=== PATIENT | female | born 1995 | race Caucasian/White ===

== ENCOUNTER 2017-11-28 17:52 | Emergency (ER) | payer OTHER ==
[2017-11-28 18:25] VITALS: BP 124/84
--- NOTE | 2017-11-28 18:50 | ED ---
GI/ HPI - HPI Summary HPI Summary: 22 female presents with dysuria since this morning. She states she has history of UTIs. Last uti was October and she was on Macrobid. She denies any nausea vomiting. She denies any flank pain. No fevers. No abdominal pain. She states that she normally gets a uti after she has sex but she has not had sex recently. She has been seeing rn gyn and she has an appointment with urology in the coming month. She states she used to get frequent uti when she was younger due to reflux but they believed she had grown out of it. - History of Current Complaint Chief Complaint: [facility] Time Seen by Provider: 11/28/17 18:29 Stated Complaint: BURNING URINATION Hx Last Menstrual Period: 11/24/17 Pain Intensity: 6 - Allergy/Home Medications Allergies/Adverse Reactions: Allergies Allergy/AdvReac Type Severity Reaction Status Date / Time No Known Allergies Allergy Verified 11/28/17 18:25 Home Medications: Home Medications Bupropion XL* [Wellbutrin XL *] 300 mg PO DAILY 11/28/17 [History Confirmed ] PMH/Surg Hx/FS Hx/Imm Hx Endocrine/Hematology History: Denies: Hx Diabetes, Hx Thyroid Disease Cardiovascular History: Denies: Hx Hypertension Respiratory History: Denies: Hx Asthma, Hx Chronic Obstructive Pulmonary Disease (COPD) GI History: Denies: Hx Ulcer History: Reports: Other Problems/Disorders - reflux Infectious Disease History: No Infectious Disease History: Denies: Hx Hepatitis, Hx Human Immunodeficiency Virus (HIV), Traveled Outside the [place] in Last 30 Days - Family History Known Family History: Negative: Renal Disease - Social History Alcohol Use: None Substance Use Type: Reports: None Smoking Status (MU): Never Smoked Tobacco Review of Systems Negative: Fever Negative: Chest Pain Negative: Shortness Of Breath Negative: Abdominal Pain, Vomiting, Nausea Positive: dysuria All Other Systems Reviewed And Are Negative: Yes Physical Exam Triage Information Reviewed: Yes Vital Signs On Initial Exam: Initial Vitals Temp Pulse Resp BP Pulse Ox 96.5 F 112 20 124/84 96 11/28/17 18:21 11/28/17 18:21 11/28/17 18:21 11/28/17 18:21 11/28/17 18:21 Vital Signs Reviewed: Yes Appearance: Positive: Well-Appearing Skin: Positive: Warm, Dry Head/Face: Positive: Normal Head/Face Inspection Eyes: Positive: Normal, Conjunctiva Clear ENT: Positive: Pharynx normal Respiratory/Lung Sounds: Positive: Clear to Auscultation, Breath Sounds Present Cardiovascular: Positive: Normal, RRR Abdomen Description: Positive: Nontender, Soft. Negative: CVA Tenderness (R), CVA Tenderness (L) Bowel Sounds: Positive: Present Musculoskeletal: Positive: Normal Neurological: Positive: Normal Psychiatric: Positive: Normal Diagnostics - Vital Signs Vital Signs Temp Pulse Resp BP Pulse Ox 11/28/17 18:21 96.5 F 112 20 124/84 96 - Laboratory Lab Statement: Any lab studies that have been ordered have been reviewed, and results considered in the medical decision making process. [facility] Course/Dx - Course Course Of Treatment: 22 female presents with dysuria since this morning. She states she has history of UTIs. Last uti was October and she was on Macrobid. She denies any nausea vomiting. She denies any flank pain. No fevers. No abdominal pain. She states that she normally gets a uti after she has sex but she has not had sex recently. She has been seeing rn gyn and she has an appointment with urology in the coming month. She states she used to get frequent uti when she was younger due to reflux but they believed she had grown out of it. on exam nontender abdomen. Negative CVA tenderness. She is UTI. We'll place on Cipro. We'll give Pyridium for pain. Patient understands agrees the plan. - Diagnoses Differential Diagnoses - Female: Pyelonephritis, Urinary Tract Infection, Ureteral Calculi Provider Diagnoses: UTI (urinary tract infection) Discharge - Sign-Out/Discharge Documenting (check all that apply): Patient Departure - Discharge Plan Condition: Good Disposition: HOME Prescriptions: Ciprofloxacin TAB* [Cipro 500 MG TAB*] 500 mg PO BID #10 tab Phenazopyridine 200 mg (NF) [Pyridium 200 MG tab *] 200 mg PO TID #6 tab Patient Education Materials: Urinary Tract Infection in Women (ED) Referrals: No Primary Care Phys,NOPCP [Primary Care Provider] - Additional Instructions: Take cipro twice a day for 5 days Take pyridium one tablets three times a day with food for 2 days Take Tylenol or ibuprofen every 6 hours as needed for pain drink plenty of fluids Follow up with urology Return to ED if develop fever, severe abdominal pain, vomiting or any new or worsening symptoms - Billing Disposition and Condition Condition: GOOD Disposition: Home
== END 2017-11-28 19:20 | disposition home or self-care (01) ==
LOC: UCEAST 17:52
DX: N39.0 Urinary tract infection, site not specified (principal)
CPT/HCPCS: 81003; 84702; 87077; 87086; 99202; G0463